=== PATIENT | male | born 1995 | race Caucasian/White ===

== ENCOUNTER 2024-07-12 21:47 | Emergency (ER) | payer SELFPAY ==
[2024-07-12] MEDS: Bacitracin Oint 1 GM U/D Packet TOP ONE (22:05)
== END 2024-07-12 22:05 | disposition home or self-care (01) ==
LOC: LB.ED 21:47
DX: S60.450A Superficial foreign body of right index finger, initial encounter (principal); W45.8XXA Other foreign body or object entering through skin, initial encounter
CPT/HCPCS: 99283